=== PATIENT | female | born 2000 | race Caucasian/White ===

== ENCOUNTER 2019-04-14 16:22 | Emergency (ER) | payer BC ==
--- NOTE | 2019-04-14 16:49 | EDM.PDOC ---
ED HPI GENERAL MEDICAL PROBLEM - General Chief Complaint: General Stated Complaint: LOWER ABDOMINAL PAIN Time Seen by Provider: 04/14/19 16:30 - History of Present Illness INITIAL COMMENTS - FREE TEXT/NARRATIVE: HISTORY AND PHYSICAL: History of present illness: Patient 18-year-old female presents with a concern of possible she has multiple nonspecific complaints is been no fever chills chest pain shortness breath or other concern apart from off-and-on diarrhea over last several days with some associated anxiety. Patient had a negative home primacy test but remains anxious. Review of systems: As per history of present illness and below otherwise all systems reviewed and negative. Past medical history: As per history of present illness and as reviewed below otherwise noncontributory. Surgical history: As per history of present illness and as reviewed below otherwise noncontributory. Social history: No reported history of drug or alcohol abuse. Family history: As per history of present illness and as reviewed below otherwise noncontributory. Physical exam: HEENT: Atraumatic, normocephalic, pupils reactive, negative for conjunctival pallor or scleral icterus, mucous membranes moist, throat clear, neck supple, nontender, trachea midline. Lungs: Clear to auscultation, breath sounds equal bilaterally, chest nontender. Heart: S1S2, regular, negative for clicks, rubs, or JVD. Abdomen: Soft, nondistended, nontender. Negative for masses or hepatosplenomegaly. Negative for costovertebral tenderness. Pelvis: Stable nontender. Genitourinary: Deferred. Rectal: Deferred. Extremities: Atraumatic, negative for cords or calf pain. Neurovascular unremarkable. Neuro: Awake, alert, oriented. Cranial nerves II through XII unremarkable. Cerebellum unremarkable. Motor and sensory unremarkable throughout. Exam nonfocal. Diagnostics: CBC CMP UA hCG Therapeutics: None Impression: #1 medical screening exam Definitive disposition and diagnosis as appropriate pending reevaluation and review of above. LLQ abd Pain Score (Numeric/FACES): 3 - Related Data Allergies Allergy/AdvReac Type Severity Reaction Status Date / Time No Known Allergies Allergy Verified 04/14/19 16:36 Home Meds: Home Meds Albuterol [Proventil HFA] 1 inh INH ASDIRECTED 04/14/19 [History] Fluticasone Propionate [Flovent Hfa] 12 gm IH ASDIRECTED 04/14/19 [History] Past Medical History - Past Health History Medical/Surgical History: Denies Medical/Surgical History Respiratory History: Reports: Asthma - Past Surgical History HEENT Surgical History: Reports: Oral Surgery Social & Family History - Family History Family Medical History: Noncontributory - Tobacco Use Smoking Status *Q: Never Smoker - Recreational Drug Use Recreational Drug Use: No ED ROS GENERAL - Review of Systems Review Of Systems: Comprehensive ROS is negative, except as noted in HPI. ED EXAM, GENERAL - Physical Exam Exam: See Below (See dictation) Course - Vital Signs Last Recorded V/S: Last Vital Signs Temp 35.9 C 04/14/19 16:34 Pulse 115 H 04/14/19 16:34 Resp 18 04/14/19 16:34 BP 130/84 04/14/19 16:34 Pulse Ox 96 04/14/19 16:34 - Orders/Labs/Meds Orders: Active Orders 24 hr Category Date Time Status CBC WITH AUTO DIFF [HEME] Stat Lab 04/14/19 16:39 Ordered COMPREHENSIVE METABOLIC PN,CMP [CHEM] Stat Lab 04/14/19 16:39 Ordered HCG QUALITATIVE,SERUM [CHEM] Stat Lab 04/14/19 16:40 Ordered UA RFX RACH AND CULT IF INDIC [URIN] Stat Lab 04/14/19 16:40 Ordered Departure - Departure Time of Disposition: 16:49 Disposition: Home, Self-Care 01 Condition: Good Clinical Impression: Encounter for medical screening examination - Discharge Information Referrals: PCP,None [Primary Care Provider] - - My Orders Last 24 Hours: My Active Orders 04/14/19 16:39 CBC WITH AUTO DIFF [HEME] Stat COMPREHENSIVE METABOLIC PN,CMP [CHEM] Stat 04/14/19 16:40 HCG QUALITATIVE,SERUM [CHEM] Stat UA RFX RACH AND CULT IF INDIC [URIN] Stat - Assessment/Plan Last 24 Hours: My Active Orders 04/14/19 16:39 CBC WITH AUTO DIFF [HEME] Stat COMPREHENSIVE METABOLIC PN,CMP [CHEM] Stat 04/14/19 16:40 HCG QUALITATIVE,SERUM [CHEM] Stat UA RFX RACH AND CULT IF INDIC [URIN] Stat
[2019-04-14 17:33] LABS: BLOOD UREA NITROGEN,BUN 14 mg/dL (7.0-18.0); CARBON DIOXIDE,CO2 25.2 mmol/L (21.0-32.0); CHLORIDE,CL 105 mmol/L (98-107); GLUCOSE RANDOM 97 mg/dL (74-106); POTASSIUM,K 3.9 mmol/L (3.5-5.1); SODIUM,NA 139 mmol/L (136-145)
== END 2019-04-14 17:57 | disposition home or self-care (01) ==
LOC: MW.ED 16:22
DX: Z13.9 Encounter for screening, unspecified (principal); J45.909 Unspecified asthma, uncomplicated; Z79.51 Long term (current) use of inhaled steroids; Z79.899 Other long term (current) drug therapy
CPT/HCPCS: 36415; 80053; 81003; 84703; 85025; 99282; 99284

== ENCOUNTER 2019-07-05 12:57 | Emergency (ER) | payer BC ==
--- NOTE | 2019-07-05 13:06 | EDM.PDOC ---
ED HPI GENERAL MEDICAL PROBLEM - General Chief Complaint: Fever Stated Complaint: FEVER OF 100 Time Seen by Provider: 07/05/19 12:58 Source of Information: Reports: Patient History Limitations: Reports: No Limitations - History of Present Illness INITIAL COMMENTS - FREE TEXT/NARRATIVE: HISTORY AND PHYSICAL: History of present illness: patient is a 18-year old female who presents to the emergency room with complaints of subjective fever, cough, intermittent nausea and diarrhea. Has had intermittent nausea and diarrhea; last loose stool was yesterday. Still has mild nausea without vomiting. Dry persistent cough; no previous history of respiratory illness. Patient denies any neck pain/stiffness, headache, change in vision, syncope or near syncope. Denies any chest pain, back pain, shortness of breath. Denies any abdominal pain, vomiting, constipation or dysuria. Has not noted any blood in urine or stool. Patient has been eating and drinking appropriately. Has not tried any OTC medications. No recent travel. No exposure to anyone who has recently been ill. Review of systems: As per history of present illness and below otherwise all systems reviewed and negative. Past medical history: As per history of present illness and as reviewed below otherwise noncontributory. Surgical history: As per history of present illness and as reviewed below otherwise noncontributory. Social history: See social history for further information Family history: As per history of present illness and as reviewed below otherwise noncontributory. Physical exam: General: Well developed and well nourished 18 year old female. A&O x 3. Nontoxic in appearance and in no acute distress. HEENT: Atraumatic, normocephalic, pupils equal and reactive bilaterally, negative for conjunctival pallor or scleral icterus, mucous membranes moist, TMs normal bilaterally, throat clear, neck supple, nontender, trachea midline. No drooling or trismus noted. No meningeal signs. No hot potato voice noted. Lungs: Slightly diminished bases bilat -otherwise clear to auscultation, breath sounds equal bilaterally, chest nontender. Dry nonproductive cough noted. Heart: S1S2, regular rate and rhythm without overt murmur Abdomen: Soft, nondistended, nontender. Negative for masses or costovertebral tenderness. Skin: Intact, warm, dry. No lesions or rashes noted. Extremities: Atraumatic, moves all extremities per self without difficulty or deficits, negative for cords or calf pain. Neurovascular unremarkable. Neuro: Awake, alert, oriented. Cranial nerves II through XII unremarkable. Cerebellum unremarkable. Motor and sensory unremarkable throughout. Exam nonfocal. Notes: Patient denies any abdominal pain. No serum lab work is needed at this time. States she has some mild nausea at this time; will give Zofran. Her main concern for presenting to the ED today is her cough and fevers. Imagining is unremarkable. Will treat bronchitis. Medication and supportive care measures were reviewed and discussed. Voices understanding and is agreeable to plan of care. Denies any further questions or concerns at this time. Diagnostics: Influenza, CXR, UA, HCGU Therapeutics: Zofran Prescription: Zpak Impression: Bronchitis Plan: 1. [place] diet and advance as tolerated. Increase your oral fluids to prevent dehydration. 2. Tylenol and/or Ibuprofen as needed for pain and fever management. 3. Follow up with your primary care provider as we discussed. Return to the ED as needed as discussed. Definitive disposition and diagnosis as appropriate pending reevaluation and review of above. Duration: Day(s): Location: Reports: Chest - Related Data Allergies Allergy/AdvReac Type Severity Reaction Status Date / Time No Known Allergies Allergy Verified 07/05/19 13:07 Home Meds: Home Meds Azithromycin [Zithromax] 1 dose PO DAILY 5 Days #6 tab 07/05/19 [Rx] Past Medical History - Past Health History Medical/Surgical History: Denies Medical/Surgical History Respiratory History: Reports: Asthma - Past Surgical History HEENT Surgical History: Reports: Oral Surgery Social & Family History - Family History Family Medical History: Noncontributory ED ROS GENERAL - Review of Systems Review Of Systems: Comprehensive ROS is negative, except as noted in HPI. ED EXAM, GENERAL - Physical Exam Exam: See Below (See dictation) Course - Vital Signs Last Recorded V/S: Last Vital Signs Temp 97.4 F 07/05/19 14:17 Pulse 101 H 07/05/19 14:17 Resp 16 07/05/19 14:17 BP 126/70 07/05/19 14:17 Pulse Ox 96 07/05/19 14:17 - Orders/Labs/Meds Orders: Active Orders 24 hr Category Date Time Status CULTURE URINE [RM] Stat Lab 07/05/19 13:15 Received Labs: Laboratory Tests 07/05/19 07/05/19 Range/Units 13:15 13:15 Urine Color YELLOW Urine Appearance SLT CLOUDY Urine pH 6.0 (5.0-8.0) Ur Specific [place] >= 1.030 (1.001-1.035) Urine Protein NEGATIVE (NEGATIVE) mg/dL Urine Glucose (UA) NEGATIVE (NEGATIVE) mg/dL Urine Ketones NEGATIVE (NEGATIVE) mg/dL Urine Occult Blood NEGATIVE (NEGATIVE) Urine Nitrite NEGATIVE (NEGATIVE) Urine Bilirubin NEGATIVE (NEGATIVE) Urine Urobilinogen 0.2 (<2.0) EU/dL Ur Leukocyte Esterase TRACE H (NEGATIVE) Urine RBC 0-2 (0-2/HPF) Urine WBC 1-3 (0-5/HPF) Ur Epithelial Cells MANY (NONE-FEW) Urine Bacteria FEW (NEGATIVE) Urine HCG, Qual NEGATIVE (NEGATIVE) Meds: Medications Discontinued Medications Generic Name Dose Route Start Last Admin Trade Name Freq PRN Reason Stop Dose Admin Ondansetron HCl 4 mg 07/05/19 13:11 07/05/19 13:24 Zofran Odt PO 07/05/19 13:12 4 mg ONETIME ONE Administration Departure - Departure Time of Disposition: 14:09 Disposition: Home, Self-Care 01 Clinical Impression: Bronchitis - Discharge Information Prescriptions: Azithromycin [Zithromax] 1 dose PO DAILY 5 Days #6 tab Instructions: Upper Respiratory Infection, Adult, [id number] Referrals: PCP,None [Primary Care Provider] - Forms: ED Department Discharge Additional Instructions: The following information is given to patients seen in the emergency department who are being discharged to home. This information is to outline your options for follow-up care. We provide all patients seen in our emergency department with a follow-up referral. The need for follow-up, as well as the timing and circumstances, are variable depending upon the specifics of your emergency department visit. If you don't have a primary care physician on staff, we will provide you with a referral. We always advise you to contact your personal physician following an emergency department visit to inform them of the circumstance of the visit and for follow-up with them and/or the need for any referrals to a consulting specialist. The emergency department will also refer you to a specialist when appropriate. This referral assures that you have the opportunity for follow-up care with a specialist. All of these measure are taken in an effort to provide you with optimal care, which includes your follow-up. Under all circumstances we always encourage you to contact your private physician who remains a resource for coordinating your care. When calling for follow-up care, please make the office aware that this follow-up is from your recent emergency room visit. If for any reason you are refused follow-up, please contact the [facility] Emergency Department at and asked to speak to the emergency department charge nurse. [facility] [address] [place] [id number] [facility] [address] [place] [id number] 1. [place] diet and advance as tolerated. Increase your oral fluids to prevent dehydration. 2. Tylenol and/or Ibuprofen as needed for pain and fever management. 3. Follow up with your primary care provider as we discussed. Return to the ED as needed as discussed. Sepsis Event Note - Focused Exam Vital Signs: Vital Signs Temp Pulse Resp BP Pulse Ox 07/05/19 14:17 97.4 F 101 H 16 126/70 96 07/05/19 13:08 96.1 F 106 H 16 132/89 95 Date Exam was Performed: 07/05/19 Time Exam was Performed: 14:32 - My Orders Last 24 Hours: My Active Orders 07/05/19 13:15 CULTURE URINE [RM] Stat - Assessment/Plan Last 24 Hours: My Active Orders 07/05/19 13:15 CULTURE URINE [RM] Stat
[2019-07-05] MEDS ORDERED: Ondansetron 4 MG Tab.DIS PO ONE (13:11)
--- NOTE | 2019-07-05 14:22 | CR ---
Chest: 2 views of the chest were obtained. Comparison: No prior chest x-ray. Heart size and mediastinum are normal. Lungs are clear. Bony structures are unremarkable. Impression: 1. Nothing acute is seen on 2 view chest x-ray. Diagnostic code #1 This report was dictated in [place] Standard Time
== END 2019-07-05 14:31 | disposition home or self-care (01) ==
LOC: MW.ED 12:57
DX: J40 Bronchitis, not specified as acute or chronic (principal); J45.909 Unspecified asthma, uncomplicated
CPT/HCPCS: 71046; 81001; 81025; 87086; 87804; 99283; A9270

== ENCOUNTER 2020-02-18 21:24 | Emergency (ER) | payer BC ==
--- NOTE | 2020-02-18 22:02 | EDM.PDOC ---
ED HPI GENERAL MEDICAL PROBLEM - General Chief Complaint: Skin Complaint Stated Complaint: ITCHY FEET Time Seen by Provider: 02/18/20 21:39 - History of Present Illness INITIAL COMMENTS - FREE TEXT/NARRATIVE: HISTORY AND PHYSICAL: History of present illness: This is a 19-year-old female who presents ER today secondary to itching to her feet that occurred earlier this evening. Patient reports while sitting in the ED her itching has completely resolved. Patient reports he did not try any medications to assist with the itching prior to coming to the ED. Patient thought that maybe walking on carpet with dog dander might of caused her symptoms. Patient has any recent fevers, shakes, chills, nausea, vomiting, diarrhea, dysuria, frequency, urgency. Patient denies any drainage from her foot. Patient denies any history of athlete's foot in the past. Review of systems: As per history of present illness and below otherwise all systems reviewed and negative. Past medical history: As per history of present illness and as reviewed below otherwise noncontributory. Surgical history: As per history of present illness and as reviewed below otherwise noncontributory. Social history: No reported history of drug or alcohol abuse. Family history: As per history of present illness and as reviewed below otherwise noncontributory. Physical exam: Constitutional: Patient is oriented to person, place, and time. Appears well- developed and well-nourished. No distress. HEENT: Moist mucous membranes Head: Normocephalic and atraumatic Eyes: Right eye exhibits no discharge. Left eye exhibits no discharge. No scl eral icterus Neck: Normal range of motion. No tracheal deviation present. Cardiovascular: Normal rate and regular rhythm. Pulmonary: Effort normal, no respiratory distress. Abdominal: No distention Musculoskeletal: Normal range of motion Neurologic: Alert and oriented to person, place and time. Skin: [place], warm and dry. Psychiatric: Normal mood and affect. Behavior is normal. Judgment and thought content normal. Nursing note and vital signs have been reviewed Patient's ER physical exam is significant for normal plantar skin. No drainage, no evidence of yeast, no evidence of trauma. Assessment and plan: Itching to feet of unclear etiology. Symptoms are currently resolved. I have discussed with the patient that if symptoms return that she can try Benadryl at home to see if it might help. Reassessment at the time of disposition demonstrates that the patient is in no acute distress. The patient has remained stable throughout the entire ED visit and is without objective evidence for acute process requiring urgent intervention or hospitalization. The patient is stable for discharge, counseling is provided as documented above, discussed symptomatic treatment and specific conditions for return. I have spoken with the patient/caregive and discussed todays findings, in addition to providing specific details for the plan of care. Questions are answered and there is agreement with the plan. Definitive disposition and diagnosis as appropriate pending reevaluation and review of above. - Related Data Allergies Allergy/AdvReac Type Severity Reaction Status Date / Time No Known Allergies Allergy Verified 07/05/19 13:07 Home Meds: Home Meds Azithromycin [Zithromax] 1 dose PO DAILY 5 Days #6 tab 07/05/19 [Rx] Past Medical History - Past Health History Medical/Surgical History: Denies Medical/Surgical History Respiratory History: Reports: Asthma - Past Surgical History HEENT Surgical History: Reports: Oral Surgery Social & Family History - Family History Family Medical History: Noncontributory ED ROS GENERAL - Review of Systems Review Of Systems: See Below ED EXAM, SKIN/RASH Exam: See Below Course - Vital Signs Last Recorded V/S: Last Vital Signs Temp 97.1 F 02/18/20 21:43 Pulse 106 H 02/18/20 21:43 Resp 18 02/18/20 21:43 BP 118/79 02/18/20 21:43 Pulse Ox 96 02/18/20 21:43 Departure - Departure Time of Disposition: 22:01 Disposition: Home, Self-Care 01 Clinical Impression: Contact dermatitis - Discharge Information Instructions: Contact Dermatitis, [id number] Referrals: Enrrique Holbrook MD [Primary Care Provider] - Forms: ED Department Discharge Additional Instructions: Etiology of your itching is unclear. If the itching recurs you may want to try [id number] Benadryl. The following information is given to patients seen in the emergency department who are being discharged to home. This information is to outline your options for follow-up care. We provide all patients seen in our emergency department with a follow-up referral. The need for follow-up, as well as the timing and circumstances, are variable depending upon the specifics of your emergency department visit. If you don't have a primary care physician on staff, we will provide you with a referral. We always advise you to contact your personal physician following an emergency department visit to inform them of the circumstance of the visit and for follow-up with them and/or the need for any referrals to a consulting specialist. The emergency department will also refer you to a specialist when appropriate. This referral assures that you have the opportunity for follow-up care with a specialist. All of these measure are taken in an effort to provide you with optimal care, which includes your follow-up. Under all circumstances we always encourage you to contact your private physician who remains a resource for coordinating your care. When calling for follow-up care, please make the office aware that this follow-up is from your recent emergency room visit. If for any reason you are refused follow-up, please contact the [facility] Emergency Department at and asked to speak to the emergency department charge nurse. Sepsis Event Note (ED) - Evaluation Sepsis Screening Result: No Definite Risk
== END 2020-02-18 22:10 | disposition home or self-care (01) ==
LOC: MW.ED 21:24
DX: L25.9 Unspecified contact dermatitis, unspecified cause (principal)
CPT/HCPCS: 99282

== ENCOUNTER 2020-03-02 13:38 | Emergency (ER) | payer BC ==
[2020-03-02] MEDS ORDERED: Ondansetron 4 MG Tab.DIS PO ONE (14:07)
--- NOTE | 2020-03-02 14:13 | EDM.PDOC ---
ED HPI GENERAL MEDICAL PROBLEM - General Chief Complaint: Gastrointestinal Problem Stated Complaint: VOMITING Time Seen by Provider: 03/02/20 13:44 - History of Present Illness INITIAL COMMENTS - FREE TEXT/NARRATIVE: History of present illness: Patient presents with nausea and vomiting that is been going on for the past week however she relates that she only vomited twice once a week ago and once today she denies any abdominal pain there is been no dysuria she is not had any fever chills she is not had any diarrhea in fact she says she is been constipated however she did have a normal bowel movement today she denies any pr ior abdominal surgeries she has multiple previous psychiatric issues of which she is on medication for. Nothing seems to make this better or worse. Review of systems: As per history of present illness and below otherwise all systems reviewed and negative. Past medical history: As per history of present illness and as reviewed below otherwise noncontributory. Surgical history: As per history of present illness and as reviewed below otherwise noncontributory. Social history: No reported history of drug or alcohol abuse. Family history: As per history of present illness and as reviewed below otherwise noncontributory. Physical exam: HEENT: Atraumatic, normocephalic, pupils reactive, negative for conjunctival pallor or scleral icterus, mucous membranes moist, throat clear, neck supple, nontender, trachea midline. Lungs: Clear to auscultation, breath sounds equal bilaterally, chest nontender. Heart: S1S2, regular, negative for clicks, rubs, or JVD. Abdomen: Soft, nondistended, nontender. Negative for masses or hepatosplenomegaly. Negative for costovertebral tenderness. Pelvis: Stable nontender. Genitourinary: Deferred. Rectal: Deferred. Extremities: Atraumatic, negative for cords or calf pain. Neurovascular unremarkable. Neuro: Awake, alert, oriented. Cranial nerves II through XII unremarkable. Cerebellum unremarkable. Motor and sensory unremarkable throughout. Exam nonf ocal. Diagnostics: [] Therapeutics: [] Impression: Nausea and vomiting [] Plan: We will check a UA and a test and she will get some Zofran her abdomen is completely benign and she does not want blood work done [] Definitive disposition and diagnosis as appropriate pending reevaluation and review of above. - Related Data Allergies Allergy/AdvReac Type Severity Reaction Status Date / Time No Known Allergies Allergy Verified 03/02/20 13:49 Home Meds: Home Meds FLUoxetine [PROzac] 20 mg PO DAILY 03/02/20 [History] Ondansetron [Zofran ODT] 4 mg PO Q6H PRN 5 Days #12 tab.dis 03/02/20 [Rx] buPROPion [buPROPion XL] 300 mg PO DAILY 03/02/20 [History] busPIRone [Buspar] 7.5 mg PO BID 03/02/20 [History] ziprasidone HCL [Geodon] 40 mg PO BID 03/02/20 [History] Past Medical History - Past Health History Medical/Surgical History: Denies Medical/Surgical History Respiratory History: Reports: Asthma Psychiatric History: Reports: Anxiety, Depression - Infectious Disease History Infectious Disease History: Reports: Hepatitis B - Past Surgical History HEENT Surgical History: Reports: Oral Surgery Social & Family History - Family History Family Medical History: Noncontributory - Tobacco Use Smoking Status *Q: Never Smoker - Recreational Drug Use Recreational Drug Use: No ED ROS GENERAL - Review of Systems Review Of Systems: See Below ED EXAM, GENERAL - Physical Exam Exam: See Below Course - Vital Signs Text/Narrative:: Patient is feeling better after Zofran she is able to tolerate oral fluids in the ED her is negative her urinalysis is unremarkable again her nominal exam is benign she discharged home follow-up with primary care. Last Recorded V/S: Last Vital Signs Temp 36.7 C 03/02/20 13:45 Pulse 104 H 03/02/20 13:45 Resp 16 03/02/20 13:45 BP 134/83 03/02/20 13:45 Pulse Ox 97 03/02/20 13:45 - Orders/Labs/Meds Orders: Active Orders 24 hr Category Date Time Status CULTURE URINE [RM] Stat Lab 03/02/20 14:40 Received Labs: Laboratory Tests 03/02/20 03/02/20 Range/Units 14:40 14:40 Urine Color YELLOW Urine Appearance SLT CLOUDY Urine pH 7.5 (5.0-8.0) Ur Specific [place] 1.020 (1.001-1.035) Urine Protein NEGATIVE (NEGATIVE) mg/dL Urine Glucose (UA) NEGATIVE (NEGATIVE) mg/dL Urine Ketones NEGATIVE (NEGATIVE) mg/dL Urine Occult Blood NEGATIVE (NEGATIVE) Urine Nitrite NEGATIVE (NEGATIVE) Urine Bilirubin NEGATIVE (NEGATIVE) Urine Urobilinogen 0.2 (<2.0) EU/dL Ur Leukocyte Esterase SMALL H (NEGATIVE) Urine RBC 0-2 (0-2/HPF) Urine WBC 2-3 (0-5/HPF) Ur Epithelial Cells FEW (NONE-FEW) Amorphous Sediment FEW (NEGATIVE) Urine Bacteria FEW (NEGATIVE) Urine Mucus FEW (NONE-MOD) Urine HCG, Qual NEGATIVE (NEGATIVE) Meds: Medications Discontinued Medications Generic Name Dose Route Start Last Admin Trade Name Derrick PRN Reason Stop Dose Admin Ondansetron HCl 4 mg 03/02/20 14:07 03/02/20 14:33 Zofran Odt PO 03/02/20 14:08 4 mg ONETIME ONE Administration Departure - Departure Time of Disposition: 15:13 Disposition: Home, Self-Care 01 Condition: Good Clinical Impression: Vomiting - Discharge Information *PRESCRIPTION DRUG MONITORING PROGRAM REVIEWED*: Not Applicable *COPY OF PRESCRIPTION DRUG MONITORING REPORT IN PATIENT ARTURO: Not Applicable Instructions: Nausea and Vomiting, Adult Referrals: Enrrique Holbrook MD [Primary Care Provider] - Forms: ED Department Discharge Additional Instructions: The following information is given to patients seen in the emergency department who are being discharged to home. This information is to outline your options for follow-up care. We provide all patients seen in our emergency department with a follow-up referral. The need for follow-up, as well as the timing and circumstances, are variable depending upon the specifics of your emergency department visit. If you don't have a primary care physician on staff, we will provide you with a referral. We always advise you to contact your personal physician following an emergency department visit to inform them of the circumstance of the visit and for follow-up with them and/or the need for any referrals to a consulting specialist. The emergency department will also refer you to a specialist when appropriate. This referral assures that you have the opportunity for follow-up care with a specialist. All of these measure are taken in an effort to provide you with optimal care, which includes your follow-up. Under all circumstances we always encourage you to contact your private physician who remains a resource for coordinating your care. When calling for follow-up care, please make the office aware that this follow-up is from your recent emergency room visit. If for any reason you are refused follow-up, please contact the [facility] Emergency Department at and asked to speak to the emergency department charge nurse. Sepsis Event Note (ED) - Evaluation Sepsis Screening Result: No Definite Risk - Focused Exam Vital Signs: Vital Signs Temp Pulse Resp BP Pulse Ox 03/02/20 13:45 36.7 C 104 H 16 134/83 97 - My Orders Last 24 Hours: My Active Orders 03/02/20 14:40 CULTURE URINE [RM] Stat - Assessment/Plan Last 24 Hours: My Active Orders 03/02/20 14:40 CULTURE URINE [RM] Stat
== END 2020-03-02 15:24 | disposition home or self-care (01) ==
LOC: MW.ED 13:38
DX: R11.2 Nausea with vomiting, unspecified (principal); J45.909 Unspecified asthma, uncomplicated; F41.9 Anxiety disorder, unspecified; F32.9 Major depressive disorder, single episode, unspecified; Z79.899 Other long term (current) drug therapy
CPT/HCPCS: 81001; 81025; 87086; 99284; A9270; 99282

== ENCOUNTER 2020-04-27 16:55 | Emergency (ER) | payer BC ==
[2020-04-27] MEDS ORDERED: Sodium Chloride 0.9% 1,000 ML IV ONE (18:03)
[2020-04-27] MEDS ORDERED: Ketorolac 30 MG/ML SDV IVPUSH ONE (18:03)
[2020-04-27] MEDS ORDERED: Morphine 4 MG/ML Syringe IVPUSH ONE (18:05)
[2020-04-27 19:27] LABS: BLOOD UREA NITROGEN,BUN 11 mg/dL (7.0-18.0); CARBON DIOXIDE,CO2 26.2 mmol/L (21.0-32.0); CHLORIDE,CL 103 mmol/L (98-107); GLUCOSE RANDOM 95 mg/dL (74-106); LIPASE 123 U/L (73-393); POTASSIUM,K 3.8 mmol/L (3.5-5.1); SODIUM,NA 139 mmol/L (136-145)
--- NOTE | 2020-04-27 20:13 | CR ---
INDICATION: Pain with cough. History of COVID COMPARISON: A chest radiograph dated April 16, 2020 TECHNIQUE: Examination consists of a single view of the chest as well as 4 additional dedicated images of the right ribcage. FINDINGS: TUBES AND LINES: None. HEART AND MEDIASTINUM: The heart size is normal. The mediastinal contour appears normal for patient age. LUNGS AND PLEURAL SPACES: The lungs appear normal.The pleural spaces are unremarkable. OSSEOUS STRUCTURES: Age-appropriate appearance. No acute focal finding. RIGHT RIB CAGE: No abnormalities noted. IMPRESSION: No evidence of active pulmonary disease. Normal-appearing right ribcage. Dictated by Brandon Aranda MD @ Apr 27 2020 8:09PM Signed by Dr. Brandon Aranda @ Apr 27 2020 8:11PM
--- NOTE | 2020-04-27 20:53 | EDM.PDOC ---
ED HPI GENERAL MEDICAL PROBLEM - General Chief Complaint: General Stated Complaint: RT RIB PAIN Time Seen by Provider: 04/27/20 17:29 Source of Information: Reports: Patient History Limitations: Reports: No Limitations - History of Present Illness INITIAL COMMENTS - FREE TEXT/NARRATIVE: HISTORY AND PHYSICAL: History of present illness: Patient is a 19-year-old female who presents to the emergency room today with concern of right-sided abdominal pain/right-sided rib discomfort has been ongoing for the past 2 to 3 days. Patient states that she was diagnosed with Covid 1 month ago but has been out of quarantine for the past 2 to 3 weeks. Patient states that she has had a residual cough since Covid. Patient states that when she coughs, it worsens her right-sided abdominal pain/rib pain. Patient states she also has pain when she presses on this area. She states she has also had a decrease in appetite since having Covid and was given an nausea medication. Patient states she has taken this without relief of her nausea but states that she has not been vomiting but just has a decrease in appetite. Patient states she has a history of asthma, anxiety, and depression. Patient states that she has an albuterol inhaler that she has been using since Covid but does not routinely use an albuterol inhaler when she is otherwise healthy. Patient denies any abdominal surgeries. Denies any trauma or injury. Patient denies fever, chills, chest pain, shortness of breath, or cough. Denies headache, neck stiff ness, change in vision, syncope, or near syncope. Denies vomiting, diarrhea, constipation, or dysuria. Has not noted any blood in urine or stool. Patient has been eating and drinking appropriately but noted decreased appetite. Review of systems: As per history of present illness and below otherwise all systems reviewed and negative. Past medical history: As per history of present illness and as reviewed below otherwise noncontributory. Surgical history: As per history of present illness and as reviewed below otherwise noncontributory. Social history: See social history for further information Family history: As per history of present illness and as reviewed below otherwise noncontributory. Physical exam: General: Patient is alert, oriented, and in no acute distress. Patient sitting comfortably on exam table but anxious appearing. Vitals stable and reviewed by me. HEENT: Atraumatic, normocephalic, pupils equal and reactive bilaterally, negative for conjunctival pallor or scleral icterus, mucous membranes moist, TMs normal bilaterally, throat clear, neck supple, nontender, trachea midline. No drooling or trismus noted. No meningeal signs. No hot potato voice noted. Lungs: Clear to auscultation, breath sounds equal bilaterally, chest nontender. Heart: S1S2, regular rate and rhythm without overt murmur Abdomen: Exam of abdomen limited due to body habitus. Obese, soft, nondistended, moderate right upper abdominal tender and tenderness into the inferior right sided ribs. Negative Davidson sign. Negative rebound tenderness. Negative for masses or hepatosplenomegaly. Negative for costovertebral tenderness. Pelvis: Stable nontender. Genitourinary: Deferred. Rectal: Deferred. Skin: Intact, warm, dry. No lesions or rashes noted. Extremities: Atraumatic, negative for cords or calf pain. Neurovascular unremarkable. Neuro: Awake, alert, oriented. Cranial nerves II through XII unremarkable. Cerebellum unremarkable. Motor and sensory unremarkable throughout. Exam nonfocal. Notes: Symptoms that would prompt return to the ED thoroughly discussed with patient. Discussed importance for follow-up with a primary care provider. Voices understanding and is agreeable to plan of care. Denies any further questions or concerns at this time. Diagnostics: CBC, CMP, UA, Serum hcg, Ddimer, Rib w chest XR, Abd/Pelvic CT w cont (Patient declines leaving a urine sample today. All risks vs benefits discussed with patient and expresses understanding.) Therapeutics: NS, Toradol, Morphine Prescription: None Impression: Right sided rib pain Abdominal pain, unspecified, RUQ Plan: 1. You can alternate ibuprofen and Tylenol as directed for pain and discomfort. 2. Follow-up with a primary care provider as discussed. Return to the ED as needed and as discussed. Definitive disposition and diagnosis as appropriate pending reevaluation and review of above. Right rib pain Pain Score (Numeric/FACES): 6 - Related Data Allergies Allergy/AdvReac Type Severity Reaction Status Date / Time No Known Allergies Allergy Verified 04/27/20 17:18 Home Meds: Home Meds FLUoxetine [PROzac] 20 mg PO DAILY 03/02/20 [History] buPROPion [buPROPion XL] 300 mg PO DAILY 03/02/20 [History] busPIRone [Buspar] 7.5 mg PO BID 03/02/20 [History] ziprasidone HCL [Geodon] 40 mg PO BID 03/02/20 [History] Past Medical History - Past Health History Medical/Surgical History: Denies Medical/Surgical History Respiratory History: Reports: Asthma Psychiatric History: Reports: Anxiety, Depression - Infectious Disease History Infectious Disease History: Reports: Hepatitis B - Past Surgical History HEENT Surgical History: Reports: Oral Surgery Social & Family History - Family History Family Medical History: No Pertinent Family History - Tobacco Use Tobacco Use Status *Q: Never Tobacco User - Caffeine Use Caffeine Use: Reports: None - Recreational Drug Use Recreational Drug Use: No ED ROS GENERAL - Review of Systems Review Of Systems: Comprehensive ROS is negative, except as noted in HPI. ED EXAM, GENERAL - Physical Exam Exam: See Below (see dictation) Course - Vital Signs Last Recorded V/S: Last Vital Signs Temp 98.2 F 04/27/20 19:00 Pulse 85 04/27/20 20:42 Resp 18 04/27/20 19:00 BP 113/55 L 04/27/20 20:42 Pulse Ox 98 04/27/20 20:42 - Orders/Labs/Meds Orders: Active Orders 24 hr Category Date Time Status Cardiac Monitoring [RC] . DIRECTED Care 04/27/20 18:04 Active EKG Documentation Completion [RC] STAT Care 04/27/20 18:04 Active Labs: Laboratory Tests 04/27/20 04/27/20 04/27/20 Range/Units 18:20 18:20 18:20 WBC 11.08 H (4.0-11.0) K/uL RBC 5.16 (4.30-5.90) M/uL Hgb 15.3 (12.0-16.0) g/dL Hct 45.1 (36.0-46.0) % MCV 87.4 (80.0-98.0) fL MCH 29.7 (27.0-32.0) pg MCHC 33.9 (31.0-37.0) g/dL RDW Std Deviation 41.2 (28.0-62.0) fl RDW Coeff of Jossie 13 (11.0-15.0) % Plt Count 307 (150-400) K/uL MPV 10.80 (7.40-12.00) fL Neut % (Auto) 49.0 (48.0-80.0) % Lymph % (Auto) 39.3 (16.0-40.0) % Isabela % (Auto) 9.1 (0.0-15.0) % Eos % (Auto) 2.3 (0.0-7.0) % Baso % (Auto) 0.3 (0.0-1.5) % Neut # (Auto) 5.4 (1.4-5.7) K/uL Lymph # (Auto) 4.4 H (0.6-2.4) K/uL Isabela # (Auto) 1.0 H (0.0-0.8) K/uL Eos # (Auto) 0.3 (0.0-0.7) K/uL Baso # (Auto) 0.0 (0.0-0.1) K/uL Nucleated RBC % 0.0 /100WBC Nucleated RBCs # 0 K/uL D-Dimer, Quantitative 0.32 (0.0-0.50) mg/L FEU Sodium 139 (136-145) mmol/L Potassium 3.8 (3.5-5.1) mmol/L Chloride 103 (98-107) mmol/L Carbon Dioxide 26.2 (21.0-32.0) mmol/L BUN 11 (7.0-18.0) mg/dL Creatinine 0.7 (0.6-1.0) mg/dL Est Cr Clr Drug Dosing 143.29 mL/min Estimated GFR (MDRD) > 60.0 ml/min Glucose 95 (74-106) mg/dL Calcium 9.2 (8.5-10.1) mg/dL Total Bilirubin 0.3 (0.2-1.0) mg/dL AST 24 (15-37) IU/L ALT 59 (14-63) IU/L Alkaline Phosphatase 73 (46-116) U/L Troponin I < 0.050 (0.000-0.056) ng/mL Total Protein 7.3 (6.4-8.2) g/dL Albumin 3.7 (3.4-5.0) g/dL Globulin 3.6 (2.6-4.0) g/dL Albumin/Globulin Ratio 1.0 (0.9-1.6) Lipase 123 (73-393) U/L HCG, Qual (NEG) 04/27/20 Range/Units 18:20 WBC (4.0-11.0) K/uL RBC (4.30-5.90) M/uL Hgb (12.0-16.0) g/dL Hct (36.0-46.0) % MCV (80.0-98.0) fL MCH (27.0-32.0) pg MCHC (31.0-37.0) g/dL RDW Std Deviation (28.0-62.0) fl RDW Coeff of Jossie (11.0-15.0) % Plt Count (150-400) K/uL MPV (7.40-12.00) fL Neut % (Auto) (48.0-80.0) % Lymph % (Auto) (16.0-40.0) % Isabela % (Auto) (0.0-15.0) % Eos % (Auto) (0.0-7.0) % Baso % (Auto) (0.0-1.5) % Neut # (Auto) (1.4-5.7) K/uL Lymph # (Auto) (0.6-2.4) K/uL Isabela # (Auto) (0.0-0.8) K/uL Eos # (Auto) (0.0-0.7) K/uL Baso # (Auto) (0.0-0.1) K/uL Nucleated RBC % /100WBC Nucleated RBCs # K/uL D-Dimer, Quantitative (0.0-0.50) mg/L FEU Sodium (136-145) mmol/L Potassium (3.5-5.1) mmol/L Chloride (98-107) mmol/L Carbon Dioxide (21.0-32.0) mmol/L BUN (7.0-18.0) mg/dL Creatinine (0.6-1.0) mg/dL Est Cr Clr Drug Dosing mL/min Estimated GFR (MDRD) ml/min Glucose (74-106) mg/dL Calcium (8.5-10.1) mg/dL Total Bilirubin (0.2-1.0) mg/dL AST (15-37) IU/L ALT (14-63) IU/L Alkaline Phosphatase (46-116) U/L Troponin I (0.000-0.056) ng/mL Total Protein (6.4-8.2) g/dL Albumin (3.4-5.0) g/dL Globulin (2.6-4.0) g/dL Albumin/Globulin Ratio (0.9-1.6) Lipase (73-393) U/L HCG, Qual NEGATIVE (NEG) Meds: Medications Discontinued Medications Generic Name Dose Route Start Last Admin Trade Name Freq PRN Reason Stop Dose Admin Sodium Chloride 1,000 mls @ 999 mls/hr 04/27/20 18:03 04/27/20 18:49 Normal Saline IV 04/27/20 19:03 999 mls/hr BOLUS ONE Administration Iopamidol 100 ml 04/27/20 21:04 04/27/20 21:04 Isovue-370 (76%) IVPUSH 04/27/20 21:05 100 ml ONETIME STA Administration Ketorolac Tromethamine 30 mg 04/27/20 18:03 04/27/20 18:44 Toradol IVPUSH 04/27/20 18:04 30 mg ONETIME ONE Administration Morphine Sulfate 4 mg 04/27/20 18:05 04/27/20 18:49 Morphine IVPUSH 04/27/20 18:06 4 mg ONETIME ONE Administration Departure - Departure Time of Disposition: 21:06 Disposition: Home, Self-Care 01 Clinical Impression: Rib pain on right side, Right upper quadrant abdominal pain - Discharge Information Instructions: Abdominal Pain, Adult, [id number], Pain Without a Known Cause Referrals: Enrrique Holbrook MD [Primary Care Provider] - Forms: ED Department Discharge Additional Instructions: The following information is given to patients seen in the emergency department who are being discharged to home. This information is to outline your options for follow-up care. We provide all patients seen in our emergency department with a follow-up referral. The need for follow-up, as well as the timing and circumstances, are variable depending upon the specifics of your emergency department visit. If you don't have a primary care physician on staff, we will provide you with a referral. We always advise you to contact your personal physician following an emergency department visit to inform them of the circumstance of the visit and for follow-up with them and/or the need for any referrals to a consulting specialist. The emergency department will also refer you to a specialist when appropriate. This referral assures that you have the opportunity for follow-up care with a s pecialist. All of these measure are taken in an effort to provide you with optimal care, which includes your follow-up. Under all circumstances we always encourage you to contact your private physici an who remains a resource for coordinating your care. When calling for follow-up care, please make the office aware that this follow-up is from your recent emergency room visit. If for any reason you are refused follow-up, please contact the Emergency Department at and asked to speak to the emergency department charge nurse. Primary Care [address] [place] [id number] [id number] 1. You can alternate ibuprofen and Tylenol as directed for pain and discomfort. 2. Follow-up with a primary care provider as discussed. Return to the ED as needed and as discussed. Sepsis Event Note (ED) - Evaluation Sepsis Screening Result: No Definite Risk - Focused Exam Vital Signs: Vital Signs Temp Pulse Resp BP Pulse Ox 04/27/20 20:42 85 113/55 L 98 04/27/20 19:00 98.2 F 91 18 118/63 97 04/27/20 17:15 96.4 F L 95 18 114/63 97 - My Orders Last 24 Hours: My Active Orders 04/27/20 18:04 Cardiac Monitoring [RC] . DIRECTED EKG Documentation Completion [RC] STAT - Assessment/Plan Last 24 Hours: My Active Orders 04/27/20 18:04 Cardiac Monitoring [RC] . DIRECTED EKG Documentation Completion [RC] STAT
[2020-04-27] MEDS ORDERED: Iopamidol 755 Mg/ML 100 ML Bottle IVPUSH STA (21:04)
--- NOTE | 2020-04-27 21:04 | CT ---
Indication: Right upper quadrant abdominal pain. Technique: CT of the abdomen and pelvis. 100 cc of Isovue 370 IV. Coronal/sagittal reconstruction images. Comparison: Right rib series, 04/27/2020. Findings: Lung bases: There is no pleural or pericardial effusion. The heart size is normal. There is no acute airspace disease. There is no basilar pneumothorax. Abdomen/pelvis: The liver morphology is non cirrhotic. There are no inflammatory changes adjacent to the gallbladder. No solid hepatic mass. No perihepatic ascites. No dilation of intrahepatic biliary radicles. Spleen size is normal. There is no pancreatic mass, pancreatic duct dilation, or glandular atrophy. The nephrograms are symmetric. There is no solid renal mass or perinephric fluid collection. Urinary bladder is normal. There is no adnexal mass. The extraperitoneal space of Retzius is clear. There is no evidence for small bowel or colonic obstruction. There is no pneumatosis. There is no portal venous gas. There is no pneumoperitoneum. No evidence for appendicitis. No pelvic sidewall lymphadenopathy. The retroperitoneum and gastrohepatic ligament are normal. Non aneurysmal abdominal aorta. Visceral artery branches are patent. The bone windows demonstrate no lytic or blastic bone lesions. On sagittal reconstruction images, the vertebral body heights are maintained. Impression: 1. No findings are seen to explain the patient`s abdominal pain. 2. No inflammatory changes adjacent to the gallbladder. 3. Normal caliber biliary tree. Please note that all CT scans at this facility use dose modulation, iterative reconstruction, and/or weight-based dosing when appropriate to reduce radiation dose to as low as reasonably achievable. Dictated by Raymon Ferrari MD @ Apr 27 2020 8:57PM Signed by Dr. Raymon Ferrari @ Apr 27 2020 9:02PM
== END 2020-04-27 21:35 | disposition home or self-care (01) ==
LOC: MW.ED 16:55
DX: R10.11 Right upper quadrant pain (principal); R07.81 Pleurodynia; J45.909 Unspecified asthma, uncomplicated; F41.9 Anxiety disorder, unspecified; F32.9 Major depressive disorder, single episode, unspecified; Z79.899 Other long term (current) drug therapy
CPT/HCPCS: 36415; 71101; 74177; 80053; 83690; 84484; 84703; 85025; 85379; 93005; 96374; 96375; 99284; J1885; J2270; J7030; Q9967; 93010; 99285